=== PATIENT | female | born 1995 | race Caucasian/White ===

== ENCOUNTER 2022-09-18 13:31 | Observation (INO) | payer BC, SELFPAY ==
[2022-09-18 14:03] VITALS: BP 121/70; PULSE 81
[2022-09-18 14:14] VITALS: BMI 26.1
[2022-09-18 14:15] VITALS: TEMP 37.2
[2022-09-18 14:15] LABS: Basophils Percent Auto 0.1 % (0.2-1.2); Eosinophils Percent Auto 0.1 % (0-4.4); Hematocrit 35.2 % (37.0-47.0); Hemoglobin 11.7 g/dL (12.0-15.0); Immature Granulocyte Absolute 0.05 K/mm3 (0.00-0.031); Immature Granulocyte Percent A 0.4 % (0-0.5); Lymphocytes Absolute Auto 1.43 K/mm3 (0.9-3.2); Lymphocytes Percent Auto 10.2 % (18.3-44.2); Mean Corpuscular HGB Conc 33.2 g/dl (32-36); Mean Corpuscular Volume 90.3 fl (80-100); Mean Platelet Volume 10.6 fl (7.4-10.4); Monocytes Absolute Auto 0.7 K/mm3 (0.1-0.6); Monocytes Percent Auto 4.9 % (2.6-8.5); Neutrophils Absolute Auto 11.8 K/mm3 (1.3-6.7); Neutrophils Percent Auto 84.3 % (45.5-73.1); Platelet Count Result 194 k/mm3 (150-375); Red Cell Distribution Width 13.5 % (11.5-14.5)
--- NOTE | 2022-09-18 14:16 | OBADM ---
This patient, Hollie Mcqueen, admitted to the OB room OB Post 115 for observation. Patient/family oriented to hospital policies and general routines including ID bracelet, bed and alarms, visiting hours, pain management, procedures, bathroom and other care routines, personal items, smoking policy, room service/diet, and visiting hours. Patient/Family are encouraged to report perceived risks to care and to ask questions if they do not understand what they are told or what they should do.
[2022-09-18 14:19] LABS: Appearance Urine Cloudy (Clear); Bacteria Urine 4+ /hpf; Bilirubin Urine Negative (Negative); Blood Urine Negative (Negative); Color Urine Yellow (Yellow); Glucose Urine UA Negative (Negative); Ketones Urine Trace mg/dL (Negative); Leukocyte Esterase Ur 2+ LEU/UL (Negative); Nitrate Urine Negative (Negative); Protein Urine Trace mg/dL (Negative); RBC Urine 0-2 /hpf (0-2); Specific Grav Ur 1.026 (1.001-1.035); Squamous Epithelial Cell Urine Moderate /hpf (Few); WBC Urine 51-100 /hpf
[2022-09-18 14:28] LABS: Add Urine Microscopic? YES
[2022-09-18] MEDS: DEXTROSE 5%/LACTATED RINGERS 1,000 ML 999 ML IV CONT (14:55)
--- NOTE | 2022-09-18 15:01 | PC.NURSE ---
Pt states she took tylenol prior to coming to the hospital.
--- NOTE | 2022-09-20 16:56 | P.PNOB_ITS ---
OB - Triage/Final Diagnosis Visit Information Date of evaluation: 09/18/22 Reason for evaluation: other (abd pain) Comments/Additional reasons for admission: I have assessed the risk for this patient, Hollie Maranda Mcqueen, and determined that she would benefit from observation care. Evaluation Laboratory results: Laboratory Tests 09/18/22 14:09 WBC 14.0 H RBC 3.90 L Hgb 11.7 L Hct 35.2 L MCV 90.3 MCH 30.0 MCHC 33.2 RDW 13.5 Plt Count 194 MPV 10.6 H Immature Gran % (Auto) 0.4 Neut % (Auto) 84.3 H Lymph % (Auto) 10.2 L [place] % (Auto) 4.9 Eos % (Auto) 0.1 Baso % (Auto) 0.1 L Lymph # (Auto) 1.43 [place] # (Auto) 0.7 H Eos # (Auto) 0.0 Baso # (Auto) 0.0 Abs Immat Gran (auto) 0.05 H Absolute Neuts (auto) 11.8 H Absolute Nucleated RBC 0.0 Nucleated RBC % 0.0 Urine Color Yellow Urine Appearance Cloudy H Urine pH 7.0 Ur Specific [place] 1.026 Urine Protein Trace Urine Glucose (UA) Negative Urine Ketones Trace H Ur Blood (Man) Negative Urine Nitrate Negative Urine Bilirubin Negative Urine Urobilinogen 1.0 Leukocyte Esterase Rfl 2+ H Urine RBC 0-2 Urine WBC 51-100 H Ur Squamous Epith Cells Moderate Urine Bacteria 4+ H Urine Casts 3-5
== END 2022-09-18 15:50 | disposition home or self-care (01) ==
PROVIDERS: Advanced Practice Midwife; Admitting Provider Obstetrics & Gynecology; Visit Provider Obstetrics & Gynecology
DX: O26.892 Other specified pregnancy related conditions, second trimester (principal); R10.9 Unspecified abdominal pain; Z3A.26 26 weeks gestation of pregnancy
CPT/HCPCS: 36415; 81001; 85025; 87086; 87088; 96360; A9270; G0378; G0379; J7121

== ENCOUNTER 2022-09-30 16:55 | Outpatient (RCR) | payer BC, SELFPAY ==
[2022-07-16] MEDS: RHO(D) IMMUNE GLOBULIN 300 MCG/2 ML SYRINGE IM (10:05)
[2022-10-01] MEDS: RHO(D) IMMUNE GLOBULIN 300 MCG/2 ML SYRINGE IM (11:12)
== END 2022-10-13 23:59 | disposition home or self-care (01) ==
LOC: ANHLAB 16:55
PROVIDERS: Visit Provider Advanced Practice Midwife
DX: Z29.13 Encounter for prophylactic Rho(D) immune globulin (principal); O36.0130 Maternal care for anti-D [Rh] antibodies, third trimester, not applicable or unspecified; Z3A.00 Weeks of gestation of pregnancy not specified
CPT/HCPCS: 36415; 85461; 86850; 86880; 86900; 86901; 86902; 90384; 96372; J2790

== ENCOUNTER 2022-12-17 15:40 | Outpatient (CLI) | payer BC, SELFPAY ==
[2022-12-17 17:00] VITALS: BP 125/84; PULSE 89
[2022-12-17 17:15] VITALS: BP 133/84; PULSE 96
[2022-12-17 17:27] LABS: Basophils Percent Auto 0.3 % (0.2-1.2); Eosinophils Percent Auto 0.2 % (0-4.4); Hematocrit 38.4 % (37.0-47.0); Hemoglobin 12.2 g/dL (12.0-15.0); Immature Granulocyte Absolute 0.08 K/mm3 (0.00-0.031); Immature Granulocyte Percent A 0.6 % (0-0.5); Lymphocytes Absolute Auto 1.87 K/mm3 (0.9-3.2); Lymphocytes Percent Auto 14.2 % (18.3-44.2); Mean Corpuscular HGB Conc 31.8 g/dl (32-36); Mean Corpuscular Hemoglobin 28.2 pg (26-34); Mean Corpuscular Volume 88.9 fl (80-100); Mean Platelet Volume 12.3 fl (7.4-10.4); Monocytes Percent Auto 7.9 % (2.6-8.5); Neutrophils Absolute Auto 10.1 K/mm3 (1.3-6.7); Neutrophils Percent Auto 76.8 % (45.5-73.1); Platelet Count Result 216 k/mm3 (150-375); Red Blood Count 4.32 M/mm3 (4.2-5.4); Red Cell Distribution Width 14.5 % (11.5-14.5); White Blood Count 13.1 K/mm3 (4.5-10.0)
[2022-12-17 17:31] VITALS: BP 82/47; PULSE 84
[2022-12-17 17:37] LABS: Creatinine Urine 94.5 mg/dL; Total Protein Urine Random 10 mg/dL; Ur Ttl Prot Creatinine Ratio 0.11 mg/mg (0-0.20)
[2022-12-17 17:41] LABS: Alanine Aminotransferase 14 U/L (6-35); Albumin Level 3.8 g/dL (3.5-5.1); Alkaline Phosphatase 171 U/L (38-126); Anion Gap 11 mmol/L (8-16); Aspartate Amino Transferase 24 U/L (14-36); Bilirubin,Total 0.5 mg/dL (0.2-1.3); Blood Urea Nitrogen 7 mg/dL (7-17); Carbon Dioxide 19 mmol/L (22-30); Chloride 104 mmol/L (98-107); Estimated Glomerular Filt Rate > 60; Glucose 68 mg/dL (65-110); Potassium 3.5 mmol/L (3.4-5.0); Sodium 134 mmol/L (137-145); Uric Acid 4.8 mg/dL (2.5-7.5)
[2022-12-17 18:00] VITALS: BP 130/84; PULSE 103
[2022-12-17 18:11] VITALS: BP 124/83; PULSE 95
[2022-12-19 14:31] LABS: Appearance Urine Clear (Clear); Bacteria Urine 2+ /hpf; Bilirubin Urine Negative (Negative); Blood Urine Negative (Negative); Calcium Oxalate Crystals Urine Present /hpf; Color Urine Yellow (Yellow); Glucose Urine UA Negative (Negative); Ketones Urine Negative (Negative); Leukocyte Esterase Ur 1+ LEU/UL (NEGATIVE); Need Manual Microscopic Reviewed; Nitrate Urine Negative (Negative); Protein Urine Negative (Negative); Specific Grav Ur 1.014 (1.001-1.035); Squamous Epithelial Cell Urine Few /hpf (Few); WBC Urine 21-50 /hpf (0-3); pH Urine 6.5 (5.0-9.0)
[2022-12-19 14:32] LABS: Add Urine Microscopic? YES
== END 2022-12-17 18:00 | disposition home or self-care (01) ==
LOC: ANHOBOP 16:52 → ANHLDR 16:54
PROVIDERS: Visit Provider Advanced Practice Midwife
DX: O13.9 Gestational [pregnancy-induced] hypertension without significant proteinuria, unspecified trimester (principal); Z3A.00 Weeks of gestation of pregnancy not specified
CPT/HCPCS: 36415; 59025; 80053; 81001; 82570; 84156; 84550; 85025; 87086; 87088; 99199

== ENCOUNTER 2022-12-18 05:56 | Inpatient (IN) | payer BC, SELFPAY ==
[2022-12-18] VITALS (127 sets, daily range): BP systolic 93–149; BP diastolic 61–110; PULSE 38–176; RESP 16; TEMP 36.3–37.2; O2SAT 80–100; BMI 28.0
--- NOTE | 2022-12-18 05:56 | LDADM ---
This patient, Hollie Mcqueen, was admitted to Labor/Delivery/Recovery 108 on 12/18/22 at 05:56. Plans for labor, pain management and were discussed with patient. Patient/family oriented to hospital policies and general routines including ID bracelet, bed and alarms, visiting hours, pain management, procedures, bathroom and other care routines, personal items, smoking policy, room service/diet and guest tray routines, security routines, and visiting hours. Patient/Family are encouraged to report perceived risks to care and to ask questions if they do not understand what they are told or what they should do. See OBIX for further documentation.
[2022-12-18 06:40] LABS: Basophils Percent Auto 0.2 % (0.2-1.2); Eosinophils Percent Auto 0.3 % (0-4.4); Hematocrit 36.3 % (37.0-47.0); Hemoglobin 11.8 g/dL (12.0-15.0); Immature Granulocyte Absolute 0.07 K/mm3 (0.00-0.031); Immature Granulocyte Percent A 0.6 % (0-0.5); Lymphocytes Absolute Auto 2.18 K/mm3 (0.9-3.2); Lymphocytes Percent Auto 17.8 % (18.3-44.2); Mean Corpuscular HGB Conc 32.5 g/dl (32-36); Mean Corpuscular Hemoglobin 28.5 pg (26-34); Mean Corpuscular Volume 87.7 fl (80-100); Mean Platelet Volume 12.2 fl (7.4-10.4); Monocytes Absolute Auto 0.9 K/mm3 (0.1-0.6); Monocytes Percent Auto 6.9 % (2.6-8.5); Neutrophils Absolute Auto 9.1 K/mm3 (1.3-6.7); Neutrophils Percent Auto 74.2 % (45.5-73.1); Platelet Count Result 213 k/mm3 (150-375); Red Blood Count 4.14 M/mm3 (4.2-5.4); Red Cell Distribution Width 14.6 % (11.5-14.5); White Blood Count 12.3 K/mm3 (4.5-10.0)
[2022-12-18 06:48] LABS: Alanine Aminotransferase 17 U/L (6-35); Albumin Level 3.5 g/dL (3.5-5.1); Alkaline Phosphatase 154 U/L (38-126); Anion Gap 7 mmol/L (8-16); Aspartate Amino Transferase 29 U/L (14-36); Bilirubin,Total 0.5 mg/dL (0.2-1.3); Blood Urea Nitrogen 9 mg/dL (7-17); Calcium 8.5 mg/dL (8.4-10.2); Carbon Dioxide 20 mmol/L (22-30); Chloride 106 mmol/L (98-107); Estimated Glomerular Filt Rate > 60; Glucose 88 mg/dL (65-110); Potassium 3.7 mmol/L (3.4-5.0); Sodium 133 mmol/L (137-145); Uric Acid 4.9 mg/dL (2.5-7.5)
[2022-12-18] MEDS: miSOPROStol 25 MCG TABLET BY MOUTH (06:59)
--- NOTE | 2022-12-18 09:04 | WPDANESEPPF ---
Anes - Initial Pre Proc Eval Procedure: labor epidural Date/Time: 12/18/22 09:04 Surgeon: Becky Segal MD Pre Op Diagnosis: labor pain Pre Op Diagnosis: iol Patient Data Age: 27 Gender: F Height: 1.68 m Weight: 79 kg Last Vital Signs Temp 36.3 C L 12/18/22 06:59 Pulse 94 12/18/22 08:44 BP 144/91 H 12/18/22 08:44 O2 Del Method Room Air 12/18/22 07:00 Allergies Allergy/AdvReac Type Severity Reaction Status Date / Time No Known Allergies Allergy Verified 12/17/22 14:26 Home Medications Medication Instructions Recorded Confirmed Type vit no.95-ferrous 1 tablet PO HS 07/16/22 12/17/22 History fumarate 28 mg-folic acid 800 mcg tablet () Laboratory Tests 12/18/22 06:27 WBC 12.3 H K/mm3 (4.5-10.0) RBC 4.14 L M/mm3 (4.2-5.4) Hgb 11.8 L g/dL (12.0-15.0) Hct 36.3 L % (37.0-47.0) MCV 87.7 fl (80-100) MCH 28.5 pg (26-34) MCHC 32.5 g/dl (32-36) RDW 14.6 H % (11.5-14.5) Plt Count 213 k/mm3 (150-375) MPV 12.2 H fl (7.4-10.4) Immature Gran % (Auto) 0.6 H % (0-0.5) Neut % (Auto) 74.2 H % (45.5-73.1) Lymph % (Auto) 17.8 L % (18.3-44.2) [place] % (Auto) 6.9 % (2.6-8.5) Eos % (Auto) 0.3 % (0-4.4) Baso % (Auto) 0.2 % (0.2-1.2) Lymph # (Auto) 2.18 K/mm3 (0.9-3.2) [place] # (Auto) 0.9 H K/mm3 (0.1-0.6) Eos # (Auto) 0.0 K/mm3 (0-0.3) Baso # (Auto) 0.0 K/mm3 (0.0-0.1) Abs Immat Gran (auto) 0.07 H K/mm3 (0.00-0.031) Absolute Neuts (auto) 9.1 H K/mm3 (1.3-6.7) Absolute Nucleated RBC 0.0 K/mm3 (0.0-0.012) Nucleated RBC % 0.0 % (0.0-0.2) Sodium 133 L mmol/L (137-145) Potassium 3.7 mmol/L (3.4-5.0) Chloride 106 mmol/L (98-107) Carbon Dioxide 20 L mmol/L (22-30) Anion Gap 7 L mmol/L (8-16) BUN 9 mg/dL (7-17) Creatinine 0.50 L mg/dL (0.7-1.0) Estim Creat Clear Calc Not Reportable Estimated GFR > 60 (59 - ) Glucose 88 mg/dL (65-110) Uric Acid 4.9 mg/dL (2.5-7.5) Calcium 8.5 mg/dL (8.4-10.2) Total Bilirubin 0.5 mg/dL (0.2-1.3) AST 29 U/L (14-36) ALT 17 U/L (6-35) Alkaline Phosphatase 154 H U/L (38-126) Total Protein 7.0 g/dL (6.3-8.2) Albumin 3.5 g/dL (3.5-5.1) RPR Pending Blood Type A Negative Antibody Screen Positive Antibody Identification Pending Antigen Identification Pending CHRISTY, IgG Interpret Pending CHRISTY, Poly Interpret Pending CHRISTY, Complement Interp Pending Patient hx anesthesia problems: none Family hx anesthesia problems: none Results Review: All pre-operative results and documents have been reviewed as part of the pre-operative evaluation. [facility] Family History Family History (Updated 12/17/22 @ 14:28 by Tabitha Kaiser RN) Father Congestive heart failure Acute myocardial infarction Diabetes mellitus Grandparent Diabetes mellitus Social History Social History Smoking status: Never smoker Second hand tobacco smoke exposure: No Substance use: never Lack of Transportation: No Lack of Food: Never True Current Housing: I Have Housing Concerned About Future Housing: No Difficulty Paying Gas/Electric Bills: No Difficulty Paying for Meds: No Currently Unemployed: No Education: Bachelor's Degree Difficulty w/ Childcare or Family Care: No Spiritual care concerns: No Anes - Eval Final PreProcedure Day of Procedure 12/18/22 09:04 Patient weight: obese ASA classification: III Anesthetic plan: proceed Anesthesia type and monitoring: regional epidural and standard monitoring Results Review: All pre-operative results and documents have been reviewed as part of the pre-operative evaluation. Informed Consent: The patient's anesthetic plan and its attendant risks and benefits were discussed with the patient/family/POA. Questions
--- NOTE | 2022-12-18 09:06 | WPDOBADMIT ---
Obstetrics - Admit Note Admission Note: record reviewed. No pertinent additions to the history and/or any subsequent changes in the physical findings that are not consistent with the expected course of the were found. IOL, elective SVE /-1, AROM small amount of clear odorless fluid Additions to the history and/or subsequent changes in the physical findings follow. None.
[2022-12-18] MEDS: LACTATED RINGERS 1,000 ML 125 ML IV CONT ×2 (09:49→10:40)
[2022-12-18] MEDS: OXYTOCIN 30 UNITS/NS 500 ML 30 UNITS/500 ML BAG 999 UNITS IV CONT (16:09)
[2022-12-18] MEDS: OXYTOCIN 30 UNITS/NS 500 ML 30 UNITS/500 ML BAG 125 UNITS IV CONT (16:31)
--- NOTE | 2022-12-18 16:41 | W.PM.PROC2 ---
Procedure Note - Detailed Date of Procedure 12/18/22 Pre-op Diagnosis Fourth degree laceration of the perineum. Post-op Diagnosis Same Procedure Performed Closure of 4th degree perineal laceration Surgeon Becky Segal MD Anesthesia Epidural Findings 2 cm defect at the distal rectum involving anal sphincter and rectal mucosa. Description of Procedure Rectal mucosa was closed with a 2-0 Vicryl. It was a imbricating sutures coming across the back of the rectal mucosa. Was a running stitch. When the rectal mucosa was closed a layer of rectovaginal septum was closed ovary. The anal sphincter was closed with multiple sutures of 2-0 Vicryl. The muscle was brought together longitudinal fashion the the vaginal mucosa was closed over the rectovaginal septum and the sphincter repair. Some perineal tissue was closed with 0 Vicryl sutures/interrupted. Skin was closed with 2-0 Vicryl.
--- NOTE | 2022-12-18 16:48 | PM.OBPRVD ---
OB - Delivery Note Procedure Delivery date: 12/18/22 Procedure: Induction method: AROM and Per Misoprostol Protocol Delivery monitor: External FHT and Internal Uterine Route of delivery: Laceration Description: Perineal - 4th Degree Delivery repair: vicryl Specimen: No Quantitative Blood Loss (ml): 280 Anesthesia type: Epidural Disposition: Floor Baby Date of : 12/18/22 Time of : 15:51 Weeks of gestation at delivery: 39 gender: Female Weight (pounds): 7 Weight (ounces): 0 presentation: vertex position: Other (compound with posterior arm) Placenta delivery description: Spontaneous Cord Vessel Description: 3 Vessels and Delayed Cord Clamping score one minute: 8 score five minutes: 8 Narrative: mother and baby skin to skin in stable condition, dr strickland at for repair
[2022-12-18] MEDS: IBUPROFEN 600 MG TABLET PO (19:29)
[2022-12-18] MEDS: BENZOCAINE 20% AER SPR (*SP) 56 GM CAN 1 SPRAY TOPICAL (19:30)
[2022-12-18] MEDS: WITCH HAZEL 40 PADS 1 PAD TOPICAL (19:31)
[2022-12-18] MEDS: HYDROcodone/acetaminophen (*CRX) 5-325 MG TABLET 1 TAB PO (20:10)
--- NOTE | 2022-12-18 20:39 | OBPPTRN ---
Patient transferred to post room # 283 via wheelchair. Support person present. Oriented to unit, room, information board, rooming in, admission packet and security measures. Patient verbalizes understanding.
[2022-12-19] MEDS: IBUPROFEN 600 MG TABLET PO ×3 (01:19→16:06)
[2022-12-19] MEDS: HYDROcodone/acetaminophen (*CRX) 5-325 MG TABLET 1 TAB PO ×2 (01:20→07:57)
[2022-12-19 04:00] VITALS: BP 121/82; PULSE 98; RESP 16; TEMP 37.1; O2SAT 97
[2022-12-19 04:28] LABS: Hematocrit 29.7 % (37.0-47.0); Hemoglobin 9.3 g/dL (12.0-15.0)
[2022-12-19 07:55] VITALS: BP 109/71; PULSE 100; RESP 16; TEMP 36.7; O2SAT 98
[2022-12-19] MEDS: DOCUSATE SODIUM 100 MG CAPSULE PO (07:57)
--- NOTE | 2022-12-19 08:41 | WPDANLDPN2 ---
Anes-Prog Note L&D Date/Time: 12/19/22 08:41 Comfortable throughout: labor and delivery Neuraxial method: epidural Epidural/Spinal procedure site: clean & non-tender Neuro status: Neuro function grossly intact. Cardiovascular status: normal Respiratory status: normal Airway patency: baseline Mental status: baseline Post-Op hydration status: normal Vital Signs: Last Vital Signs Temp 37.1 C 12/19/22 04:00 Pulse 98 12/19/22 04:00 Resp 16 12/19/22 04:00 BP 121/82 12/19/22 04:00 Pulse Ox 97 12/19/22 04:00 O2 Del Method Room Air 12/19/22 04:00 Pain score (VAS): 2/10 Post-procedural complaints: none Patient feedback: Patient satisfied with anesthetic care.
--- NOTE | 2022-12-19 09:13 | PM.OBPNVD ---
OB - PN: Subj Subjective Date/time seen: 12/19/22 09:13 , pp day 1 bottle feeding pain well managed OB - PN: Obj Data Labs 12/19/22 03:42 12/18/22 06:27 Labs: Laboratory Results - last 24 hr 12/18/22 08 06:27 03:42 Hgb 9.3 L Hct 29.7 L Blood Type A Negative Antibody Screen TNP Antibody Identification Passive Due to RH Imm Glob Antigen Identification Cancelled CHRISTY, IgG Interpret Not Performed CHRISTY, Poly Interpret Negative CHRISTY, Complement Interp Not Performed Screen Negative Baby's Blood Type O pos Baby's CHRISTY Negative Doses of RhIg Required 1 OB - PN A/P Plan day: 1 Plan: routine care Time Spent With Patient Time: Total time spent is greater than 50% in coordination of care (as documented) at patient's floor/unit and/or counseling patient: Exam Const: General: cooperative, healthy appearing and comfortable Resp: Effort & Inspection: normal respiratory effort Cardio: Rate: regular rate Rhythm: regular rhythm GI: Inspection: normal to inspection : Other: incision without redness or swelling Skin: General skin exam: normal color
[2022-12-19] MEDS: RHO(D) IMMUNE GLOBULIN 300 MCG/2 ML SYRINGE IM (12:42)
[2022-12-19] MEDS: polyethylene glycoL 3350 17 GM POWD.PACK PO (12:43)
[2022-12-19 12:45] VITALS: BP 138/84; PULSE 93; RESP 16; TEMP 36.3; O2SAT 98
[2022-12-19 21:25] VITALS: BP 142/88; PULSE 89; RESP 16; TEMP 36.9; O2SAT 99
[2022-12-20] MEDS: HYDROcodone/acetaminophen (*CRX) 5-325 MG TABLET 1 TAB PO (01:03)
[2022-12-20] MEDS: IBUPROFEN 600 MG TABLET PO ×2 (01:04→07:50)
--- NOTE | 2022-12-20 06:33 | P.PNOB_ITS ---
OB - PN: Subj Subjective Date/time seen: 12/20/22 06:33 pp day 2 doing well pain well managed bottle feeding d/c home OB - PN: Obj Data Labs 12/19/22 03:42 12/18/22 06:27 Labs: Laboratory Results - last 24 hr 12/19/22 03:42 Blood Type A Negative Antibody Screen TNP Screen Negative Baby's Blood Type O pos Baby's CHRISTY Negative Doses of RhIg Required 1 OB - PN A/P Plan day: 2 Plan: routine care and discharge home Time Spent With Patient Time: Total time spent is greater than 50% in coordination of care (as documented) at patient's floor/unit and/or counseling patient: Review of Systems Review of Systems: All systems reviewed & are unremarkable except as noted in HPI and below Exam 2 Const: General: cooperative and healthy appearing Resp: Effort & Inspection: normal respiratory effort Cardio: Rate: regular rate Rhythm: regular rhythm GI: Other: gravid Back/Spine/Pelvis: Back: no CVA tenderness Skin: General skin exam: normal color Extrem: Right lower extremity: normal to inspection Left lower extremity: normal to inspection Psych: Appearance: grossly normal
--- NOTE | 2022-12-20 06:42 | PM.OBDSVD ---
DS: Admitting Diagnosis Discharge Date 12/20/22 Admitting Diagnosis IOL DS: Discharge Diagnosis Discharge Diagnosis (1) Vaginal delivery: Code(s): O80 - Encounter for full-term uncomplicated delivery Status: Acute OB - DS: Summary OB Procedures : None OB Procedures Intrapartum: Spontaneous Vag Delivery OB Procedures: : None Time Spent with Patient Time attestation: Total time spent providing and/or coordinating discharge services: DS: Data Data Completed and Pending Labs on day of discharge: Labs from last 24 hours 12/19/22 03:42 Blood Type A Negative Antibody Screen TNP Screen Negative Baby's Blood Type O pos Baby's CHRISTY Negative Doses of RhIg Required 1 Discharge Plan Discharge Attending physician on discharge: Becky Segal Discharging Clinician: Hollie Anderson Patient Disposition: Home, Self-Care Activity: pelvic rest Diet: regular Patient Instructions: Antibiotic Form Stand Alone Forms: General Discharge Information Follow-up/Referrals: Hollie Anderson, CNM [Certified Nurse Design And Sales Consultant] - 4 Weeks Discharge Medications: New hydrocodone-acetaminophen 5-325 mg Tablet 1 tablet PO Q4H PRN (Reason: Pain Rated 4-6) Qty: 30 0RF ibuprofen 600 mg Tablet 600 mg PO Q6H PRN (Reason: Cramping) Qty: 30 0RF Continued PNV cmb#95-ferrous fumarate-FA [] 28 mg iron- 800 mcg Tablet 1 tablet PO HS Date of admission: 12/18/22 05:56 Primary Care Provider: PHYSICIAN,RAISED PRINTER Admitting Provider: Becky Segal Attending physician on admission: Becky Segal Condition: Stable
[2022-12-20 07:45] VITALS: BP 118/84; PULSE 90; RESP 18; TEMP 37.2; O2SAT 100
[2022-12-20] MEDS: polyethylene glycoL 3350 17 GM POWD.PACK PO (07:49)
[2022-12-20] MEDS: DOCUSATE SODIUM 100 MG CAPSULE PO (07:49)
--- NOTE | 2022-12-20 09:11 | PC.NURSE ---
Patient viewed the discharge video Mother & Baby Care, The First Two Weeks . Patient was given the opportunity and encouraged to ask questions. Patient verbalized understanding of information shared and has been given the mother/baby guide for home reference.
[2022-12-20 15:49] LABS: Rapid Plasma Reagin Non-Reactive (NonReactive)
[2022-12-22 11:40] VITALS: BP 131/86; PULSE 79; RESP 18; TEMP 36.8; O2SAT 100
== END 2022-12-20 13:02 | disposition home or self-care (01) | DRG 768 ==
LOC: ANHLDR 05:59 → ANHOB2 20:47
PROVIDERS: Advanced Practice Midwife; Admitting Provider Obstetrics & Gynecology; Visit Provider Obstetrics & Gynecology
DX: O69.82X0 Labor and delivery complicated by other cord entanglement, without compression, not applicable or unspecified (principal); Z37.0 Single live birth; O70.3 Fourth degree perineal laceration during delivery; Z3A.39 39 weeks gestation of pregnancy
CPT/HCPCS: 36415; 80053; 84550; 85014; 85018; 85025; 85461; 86592; 86850; 86880; 86900; 86901; 86902; 90384; A9270; J0696; J2590; J2790; J2795; J7120